=== PATIENT | male | born 1985 | race Caucasian/White ===

== ENCOUNTER 2023-12-27 05:47 | Inpatient (IN) ==
[~2023-12-27 05:47] MED LIST: Lidocaine 1% w EPI 1:200,000 SDV 30 ML VIAL ONE; Thrombin 5,000 UNITS 1 APPLIC KIT - topical use - TOPICAL ONE; ceFAZolin VIAL VIAL ONE
[2023-12-27] MEDS ORDERED: Chlorhexidine MOUTHWASH 0.12% 15 ML UDC ONE (05:58)
[2023-12-27] MEDS ORDERED: Buffered Lidocaine 1% SYRIN 1 ml INTRADERM ONE (06:00)
[2023-12-27] MEDS ORDERED: Lactated Ringers 1000 ml BAG 1,000 ML IV SCH (06:00)
[2023-12-27] MEDS ORDERED: ceFAZolin 2 GM PREMIX 2 GM/50 ML BAG ONE (06:23)
[2023-12-27] MEDS ORDERED: Dexamethasone IV 4 MG/ML VIAL 1 ml VIAL ONE ×2 (06:23→10:46)
[2023-12-27] MEDS ORDERED: Famotidine IV 10 MG/ML 2 ml VIAL (20 mg) ONE (06:23)
[2023-12-27 06:31] LABS: Rapid COVID-19 Molecular Undetected (Undetected)
[2023-12-27] MEDS: Dexamethasone IV 4 MG/ML VIAL 1 ml VIAL IV SLOW PU ONE (06:43)
[2023-12-27] MEDS: Famotidine IV 10 MG/ML 2 ml VIAL (20 mg) IV ONE (06:46)
[2023-12-27] MEDS ORDERED: fentaNYL 100 mcg/2 ml 50 MCG/ML VIAL ONE ×2 (07:09→13:55)
[2023-12-27] MEDS ORDERED: Rocuronium 50 mg VIAL 10 mg/ml 5 ml VIAL (50 mg) ONE (07:09)
[2023-12-27] MEDS ORDERED: Propofol 10 MG/ML 20 ML BTL ONE (07:09)
[2023-12-27] MEDS ORDERED: Lidocaine 2% PF 5 ML VIAL ONE (07:09)
[2023-12-27] MEDS ORDERED: fentaNYL 250 mcg/5 ml 50 MCG/ML 5 ml VIAL (250 MCG) ONE (07:10)
[2023-12-27] MEDS ORDERED: Midazolam 2 mg/2 ml VIAL 1 mg/ml 2 ml VIAL (2 mg) ONE (07:10)
[2023-12-27] MEDS ORDERED: Naloxone 0.4 mg VIAL 0.4 mg/ml 1 ml VIAL IV PRN (07:33)
[2023-12-27] MEDS ORDERED: Prochlorperazine 5 mg/ml 2 ml VIAL (10 mg) IV PRN (07:33)
[2023-12-27] MEDS ORDERED: Ondansetron 4 mg VIAL 2 MG/ML 2 ml VIAL ONE (10:46)
[2023-12-27] MEDS ORDERED: Morphine 2 MG/ML SYRINGE IV PRN (13:07)
[2023-12-27] MEDS ORDERED: Benzocaine/Menthol LOZ MT PRN (13:07)
[2023-12-27] MEDS ORDERED: Dextran 70/Hypromellose Tears Eye Drops 15 ml BTL (for Artificials Tears) BOTH EYES PRN (13:07)
[2023-12-27] MEDS ORDERED: Senna TAB 8.6 mg TAB PO PRN (13:07)
[2023-12-27] MEDS ORDERED: Calcium Carb (TUMS) 500 mg CHEW TAB PO PRN (13:07)
[2023-12-27] MEDS ORDERED: Ondansetron 4 mg VIAL 2 MG/ML 2 ml VIAL IV PRN (13:07)
[2023-12-27] MEDS ORDERED: Phenol 1.4% Throat Spray BTL MT PRN (13:07)
[2023-12-27] MEDS ORDERED: Morphine 4 MG/ML VIAL (1 ml) ONE (13:28)
[2023-12-27] MEDS: Morphine 4 MG/ML VIAL (1 ml) IV PRN (13:29)
[2023-12-27] MEDS: fentaNYL 100 mcg/2 ml 50 MCG/ML VIAL IV PRN (13:56)
[2023-12-27] MEDS: Lactated Ringers 1000 ml BAG 1,000 ML IV SCH (15:09)
[2023-12-28 10:03] VITALS: BP 123/71
== END 2023-12-28 11:35 | disposition home or self-care (01) | DRG 402 ==
LOC: AA 05:47 → SSU 15:05
PROVIDERS: ADMIT Neurological Surgery; ATTEND Neurological Surgery